=== PATIENT | female | born 1990 | race Caucasian/White ===

== ENCOUNTER 2021-08-28 08:35 | Emergency (ER) | payer SELFPAY ==
[2021-08-28 09:43] LABS: #Basophils 0.1 10x3/uL (0.0-0.2); #Eosinphils 0.5 10x3/uL (0.0-0.5); #Monocytes 0.8 10x3/uL (0.0-1.1); #Neutrophils 9.4 10x3/uL (1.5-8.4); %Basophils 0.4 % (0.0-2.0); %Eosinophils 3.4 % (0.0-6.0); Hemoglobin 14.1 g/dL (12.0-15.5); Mean Corpuscular HGB CONC 32.9 g/dL (32.0-36.0); Mean Corpuscular Hemoglobin 28.8 pg (27.0-33.0); Mean Corpuscular Volume 87.6 fl (81.6-98.3); Mean Platelet Volume 11.2 fl (7.4-10.4); Platelet Count 243 10x3/uL (150-450); White Blood Cell (WBC) Count 13.3 10x3/uL (3.5-10.5)
[2021-08-28 09:45] LABS: BHCG - Serum Negative (NEGATIVE); Pregs Control Background? CLEAR/WHITE (CLR/WHITE); Pregs Control Bar Appear? YES (CONTROL BAR)
[2021-08-28 09:53] LABS: ALT (SGPT) 17 U/L (8-55); AST (SGOT) 14 U/L (5-34); Albumin 4.6 g/dL (3.5-5.0); Alkaline Phosphatase 60 U/L (40-110); Anion Gap 13 mmol/L (10-20); BUN (Urea Nitrogen) 12 mg/dL (7.0-18.7); Bilirubin, Total 0.6 mg/dL (0.2-1.2); Calc. Creatinine Clearance 0 mL/min (70-130); Calcium 9.4 mg/dL (7.8-10.44); Carbon Dioxide 26 mmol/L (22-29); Chloride 106 mmol/L (98-107); Globulin 3.3 g/dL (2.4-3.5); Glucose 81 mg/dL (70-105); Lipase 17 U/L (8-78); Potassium 3.8 mmol/L (3.5-5.1); Protein, Total 7.9 g/dL (6.0-8.3); Sodium 141 mmol/L (136-145)
[2021-08-28] MEDS ORDERED: Famotidine/PF 20 mg/2ml Vial ONE (11:46)
[2021-08-28] MEDS ORDERED: Pantoprazole 40 MG VIAL ONE (11:46)
== END 2021-08-28 13:54 | disposition home or self-care (01) ==
LOC: CSHERS 08:35
DX: K20.90 Esophagitis, unspecified without bleeding (principal); R11.2 Nausea with vomiting, unspecified; J45.909 Unspecified asthma, uncomplicated; K21.9 Gastro-esophageal reflux disease without esophagitis; F17.290 Nicotine dependence, other tobacco product, uncomplicated; M19.90 Unspecified osteoarthritis, unspecified site; G62.9 Polyneuropathy, unspecified; B20 Human immunodeficiency virus [HIV] disease
CPT/HCPCS: 80053; 83690; 84703; 85025; 93005; 96374; 96375; C9113; S0028

== ENCOUNTER 2022-11-28 18:05 | Inpatient (IN) | payer OTHER ==
[2022-11-28] MEDS ORDERED: hydrALAZINE 20 MG/ML VIAL SLOW IVP PRN (18:51)
[2022-11-28] MEDS ORDERED: Promethazine HCl 25 MG/ML VIAL IM PRN (18:51)
[2022-11-28] MEDS ORDERED: Methylergonovine 0.2 MG/ML VIAL IM PRN (18:51)
[2022-11-28] MEDS ORDERED: Ondansetron PF 4 MG/2 ML Vial IVP PRN (18:51)
[2022-11-28] MEDS ORDERED: Misoprostol 200 MCG TAB PR PRN (18:51)
[2022-11-28] MEDS ORDERED: Lidocaine 1% (PF) 30 ML VIAL SC PRN (18:51)
[2022-11-28] MEDS ORDERED: Tranexamic Acid 1,000 MG/10 ML VIAL IVP PRN (18:51)
[2022-11-28] MEDS ORDERED: Penicillin G Potassium 5 MILL.UNITS in Sodium Chloride 0.9% 100 ML IVPB SCH (19:00)
[2022-11-28] MEDS ORDERED: NS w/ Oxytocin 30 units 500 ML IV SCH (19:00)
[2022-11-28] MEDS: Misoprostol 100 MCG TAB VAG SCH (20:51)
[2022-11-28 20:52] LABS: Hemoglobin 12.6 g/dL (12.0-15.5); Mean Corpuscular HGB CONC 33.1 g/dL (32.0-36.0); Mean Corpuscular Hemoglobin 28.7 pg (27.0-33.0); Mean Corpuscular Volume 86.8 fl (81.6-98.3); Mean Platelet Volume 12.1 fl (7.4-10.4); Platelet Count 204 10x3/uL (150-450); RBC Distribution Width 13.1 % (11.5-14.5); Red Blood Cell (RBC) Count 4.39 10x6/uL (3.90-5.03); White Blood Cell (WBC) Count 16.7 10x3/uL (3.5-10.5)
[2022-11-28 21:11] LABS: ALT (SGPT) 14 U/L (8-55); AST (SGOT) 15 U/L (5-34); Albumin 3.5 g/dL (3.5-5.0); Alkaline Phosphatase 107 U/L (40-110); Anion Gap 16 mmol/L (10-20); BUN (Urea Nitrogen) 7 mg/dL (7.0-18.7); Bilirubin, Total 0.2 mg/dL (0.2-1.2); Calc. Creatinine Clearance 0 mL/min (70-130); Carbon Dioxide 19 mmol/L (22-29); Chloride 107 mmol/L (98-107); Estimated GFR 117; Globulin 3.1 g/dL (2.4-3.5); Glucose 93 mg/dL (70-105); Potassium 3.7 mmol/L (3.5-5.1); Protein, Total 6.6 g/dL (6.0-8.3); Sodium 138 mmol/L (136-145)
[2022-11-28 22:25] LABS: Hemoglobin A1c 5.3 % (4.0-6.0)
[2022-11-29 00:06] LABS: HBSAg Index 0.12 S/CO (0-0.99); Hep B Surf Ag - L&D Non-Reactive S/CO (NonReactive)
[2022-11-29 00:06] LABS: Syphilis Antibody Nonreactive (Nonreactive); Syphilis Antibody Index 0.08 S/CO (<1.00 Non-Reactive)
[2022-11-29] MEDS: Misoprostol 100 MCG TAB VAG SCH ×4 (00:20→14:51)
[2022-11-29] MEDS: Penicillin G 2.5 MILL.units 2.5 MILL.UNITS in Premix Bag 1 BAG IVPB SCH ×2 (01:59→05:53)
[2022-11-29] MEDS ORDERED: Ventolin HFA Inhaler 60 PUFF INHALER INH PRN (03:31)
[2022-11-29] MEDS ORDERED: Bupropion 150 MG SR TAB PO SCH (03:45)
[2022-11-29 04:36] VITALS: BMI 49.8
[2022-11-29] MEDS ORDERED: Gabapentin 300 MG CAP PO SCH (04:45)
[2022-11-29] MEDS ORDERED: metFORMIN 500 MG TAB PO SCH (08:00)
[2022-11-29] MEDS ORDERED: Prenatal Vitamin 1 TAB PO SCH (09:00)
[2022-11-29] MEDS: Bupropion 150 MG SR TAB PO SCH (16:17)
[2022-11-29] MEDS: Gabapentin 300 MG CAP PO SCH (16:17)
[2022-11-29] MEDS ORDERED: Mometasone Furoate 30 PUFF 220 MCG INH SCH (18:30)
[2022-11-30] MEDS: Gabapentin 300 MG CAP PO SCH (04:25)
[2022-11-30] MEDS: Bupropion 150 MG SR TAB PO SCH (04:26)
[2022-11-30] MEDS ORDERED: Fentanyl 100 MCG/2 ML VIAL ONE (08:06)
[2022-11-30] MEDS ORDERED: Morphine PF 10 MG/10 ML VIAL ONE (08:06)
[2022-11-30] MEDS ORDERED: Dexamethasone 4 mg/ml Vial ONE (08:06)
[2022-11-30] MEDS ORDERED: Oxytocin 10 UNITS/ML VIAL ONE (08:06)
[2022-11-30] MEDS ORDERED: Ondansetron PF 4 MG/2 ML Vial ONE (08:06)
[2022-11-30] MEDS ORDERED: Phenylephrine 40 MG/NS 250 ML 250 ML ONE (08:07)
[2022-11-30] MEDS ORDERED: Ketorolac Tromethamine 30 MG/ML VIAL ONE (08:07)
[2022-11-30] MEDS ORDERED: EPINEPHrine 1 MG/ML AMP ONE (08:08)
[2022-11-30] MEDS ORDERED: Fentanyl 100 MCG/2 ML VIAL SLOW IVP PRN (08:37)
[2022-11-30] MEDS ORDERED: Naloxone HCl 0.4 mg/ml Vial IVP PRN ×2 (08:37)
[2022-11-30] MEDS ORDERED: Moisturizing Cream (Eucerin) 113 GM JAR TOP PRN (08:37)
[2022-11-30] MEDS ORDERED: Promethazine HCl 25 MG SUPP PR PRN (08:37)
[2022-11-30] MEDS ORDERED: Meperidine HCl/PF 25 MG/ML VIAL SLOW IVP PRN (08:37)
[2022-11-30] MEDS ORDERED: Promethazine HCl 25 MG/ML VIAL IM PRN ×2 (08:37→16:38)
[2022-11-30] MEDS ORDERED: Ondansetron PF 4 MG/2 ML Vial IVP PRN ×2 (08:37→16:38)
[2022-11-30] MEDS ORDERED: diphenhydrAMINE 50 MG/ML VIAL IVP PRN (08:37)
[2022-11-30] MEDS ORDERED: Ondansetron HCl/PF 4 MG/2 ML Vial IVP PRN (08:37)
[2022-11-30] MEDS ORDERED: Naloxone HCl 0.4 mg/ml Vial IV PRN (08:37)
[2022-11-30] MEDS ORDERED: Communication Order-Pharmacy FS SCH (08:45)
[2022-11-30] MEDS ORDERED: CEFAZOLIN 2 GM VIAL ONE (09:02)
[2022-11-30] MEDS ORDERED: Famotidine/PF 20 mg/2ml Vial ONE (09:02)
[2022-11-30] MEDS ORDERED: Bicitra 30 ML UDCUP PO PRN (10:29)
[2022-11-30] MEDS ORDERED: Famotidine/PF 20 mg/2ml Vial SLOW IVP PRN (10:29)
[2022-11-30] MEDS ORDERED: CEFAZOLIN 2 GM in Sodium Chloride 0.9% 100 ML IVPB SCH (10:30)
[2022-11-30] MEDS ORDERED: Lidocaine 1% (PF) 30 ML VIAL ONE (13:09)
[2022-11-30] MEDS ORDERED: Bisacodyl 10 MG SUPP PR PRN (16:38)
[2022-11-30] MEDS ORDERED: Boostrix 0.5 ML (Tdap) VIAL (>/=7 yrs of age) IM ONE (16:38)
[2022-11-30] MEDS ORDERED: hydrALAZINE 20 MG/ML VIAL SLOW IVP PRN (16:38)
[2022-11-30] MEDS ORDERED: NS w/ Oxytocin 30 units 500 ML IV SCH (16:38)
[2022-11-30] MEDS ORDERED: Misoprostol 200 MCG TAB PR PRN (16:38)
[2022-11-30] MEDS ORDERED: diphenhydrAMINE 25 MG CAP PO PRN (16:38)
[2022-11-30] MEDS ORDERED: Lanolin Ointment 7 GM TUBE TOP PRN (16:38)
[2022-11-30] MEDS ORDERED: Methylergonovine 0.2 MG/ML VIAL IM PRN (16:38)
[2022-11-30] MEDS: Acetaminophen 325 MG TAB PO SCH (20:40)
[2022-11-30] MEDS ORDERED: HYDROcodone/Acetaminophen 5/325 mg Tablet PO PRN (21:00)
[2022-12-01] MEDS: Docusate 100 MG CAP PO SCH ×3 (00:32→21:05)
[2022-12-01] MEDS: Acetaminophen 325 MG TAB PO SCH ×7 (00:32→21:03)
[2022-12-01 06:47] LABS: Hemoglobin 11.1 g/dL (12.0-15.5); Mean Corpuscular HGB CONC 32.3 g/dL (32.0-36.0); Mean Corpuscular Hemoglobin 28.3 pg (27.0-33.0); Mean Corpuscular Volume 87.8 fl (81.6-98.3); Platelet Count 209 10x3/uL (150-450); RBC Distribution Width 13.2 % (11.5-14.5); Red Blood Cell (RBC) Count 3.92 10x6/uL (3.90-5.03); White Blood Cell (WBC) Count 18.9 10x3/uL (3.5-10.5)
[2022-12-01] MEDS: Penicillin G 2.5 MILL.units 2.5 MILL.UNITS in Premix Bag 1 BAG IVPB SCH ×4 (07:18→07:21)
[2022-12-01] MEDS: Misoprostol 100 MCG TAB VAG SCH ×4 (07:19→07:22)
[2022-12-01] MEDS: Bupropion 150 MG SR TAB PO SCH ×2 (07:20→21:05)
[2022-12-01] MEDS: Prenatal Vitamin 1 TAB PO SCH (08:56)
[2022-12-01] MEDS ORDERED: Gabapentin 300 MG CAP PO SCH (21:00)
[2022-12-02] MEDS: Acetaminophen 325 MG TAB PO SCH ×4 (02:06→12:31)
[2022-12-02] MEDS ORDERED: Simethicone Chewable 80 MG TAB PO SCH (03:30)
[2022-12-02] MEDS ORDERED: Mometasone Furoate 120 PUFF 220 MCG INH SCH (07:00)
[2022-12-02] MEDS: Bupropion 150 MG SR TAB PO SCH (08:32)
[2022-12-02] MEDS: Docusate 100 MG CAP PO SCH (08:32)
[2022-12-02] MEDS: Prenatal Vitamin 1 TAB PO SCH (08:32)
[2022-12-02 12:25] VITALS: BP 130/77; TEMP 98.8
== END 2022-12-02 13:30 | disposition home or self-care (01) | DRG 787 ==
LOC: CSHLD 18:05 → CSHPP 11-30 16:31
PROVIDERS: ADMIT Family Medicine; ATTEND Family Medicine
PROC: 3E0P7VZ Introduction of Hormone into Female Reproductive, Via Natural or Artificial Opening (ICD-10-PCS; principal; 2022-11-29)
PROC: 10D00Z1 Extraction of Products of Conception, Low, Open Approach (ICD-10-PCS; 2022-11-30)
DX: O99.344 Other mental disorders complicating childbirth (principal); O99.354 Diseases of the nervous system complicating childbirth; O99.824 Streptococcus B carrier state complicating childbirth; E66.9 Obesity, unspecified; O99.214 Obesity complicating childbirth; Z3A.38 38 weeks gestation of pregnancy; Z37.0 Single live birth; J45.20 Mild intermittent asthma, uncomplicated; O99.52 Diseases of the respiratory system complicating childbirth; F32.9 Major depressive disorder, single episode, unspecified; K21.9 Gastro-esophageal reflux disease without esophagitis; O99.62 Diseases of the digestive system complicating childbirth; O99.892 Other specified diseases and conditions complicating childbirth; M51.36 Other intervertebral disc degeneration, lumbar region; O24.420 Gestational diabetes mellitus in childbirth, diet controlled; G62.9 Polyneuropathy, unspecified; Z90.89 Acquired absence of other organs; Z79.899 Other long term (current) drug therapy; Z88.6 Allergy status to analgesic agent; O62.2 Other uterine inertia; O61.0 Failed medical induction of labor
CPT/HCPCS: 36415; 36416; 51702; 80053; 82010; 83036; 85027; 86780; 86850; 86900; 86901; 87340; J0171; J1100; J1885; J2001; J2274; J2405; J2540; J2590; J3010; J3490; S0028

== ENCOUNTER 2022-12-04 06:54 | Emergency (ER) | payer OTHER ==
[2022-12-04 08:01] LABS: #Eosinphils 0.4 10x3/uL (0.0-0.5); #Monocytes 0.8 10x3/uL (0.0-1.1); #Neutrophils 7.6 10x3/uL (1.5-8.4); %Basophils 0.4 % (0.0-2.0); %Eosinophils 3.8 % (0.0-6.0); %Lymphocytes 15.3 % (18.0-47.0); %Monocytes 7.4 % (0.0-10.0); %Neutrophils 72.3 % (40.0-75.0); Mean Corpuscular Hemoglobin 28.6 pg (27.0-33.0); Mean Corpuscular Volume 86.5 fl (81.6-98.3); Mean Platelet Volume 11.5 fl (7.4-10.4); Platelet Count 239 10x3/uL (150-450); RBC Distribution Width 13.1 % (11.5-14.5); Red Blood Cell (RBC) Count 3.85 10x6/uL (3.90-5.03); White Blood Cell (WBC) Count 10.5 10x3/uL (3.5-10.5)
[2022-12-04 08:10] LABS: PTT 28.9 sec (22.0-33.0); Prothrombin Time 10.3 sec (9.5-12.1)
[2022-12-04 08:15] LABS: ALT (SGPT) 70 U/L (8-55); AST (SGOT) 55 U/L (5-34); Albumin 3.5 g/dL (3.5-5.0); Alkaline Phosphatase 83 U/L (40-110); Anion Gap 14 mmol/L (10-20); BUN (Urea Nitrogen) 8 mg/dL (7.0-18.7); Bilirubin, Total 0.3 mg/dL (0.2-1.2); CRP (Inflammatory) 4.63 mg/dL (= or < 0.5); Calc. Creatinine Clearance 0 mL/min (70-130); Calcium 8.7 mg/dL (7.8-10.44); Carbon Dioxide 23 mmol/L (22-29); Chloride 108 mmol/L (98-107); Estimated GFR 115; Globulin 2.5 g/dL (2.4-3.5); Glucose 91 mg/dL (70-105); Potassium 4.2 mmol/L (3.5-5.1); Sodium 141 mmol/L (136-145)
== END 2022-12-04 09:21 | disposition home or self-care (01) ==
LOC: CSHERS 06:54
DX: G62.9 Polyneuropathy, unspecified (principal); M54.50 Low back pain, unspecified; K21.9 Gastro-esophageal reflux disease without esophagitis; F17.290 Nicotine dependence, other tobacco product, uncomplicated
CPT/HCPCS: 36415; 72146; 72148; 80053; 83605; 85025; 85610; 85730; 86140